=== PATIENT | female | born 2000 | race Caucasian/White ===

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

== ENCOUNTER → 2022-03-24 | Outpatient (CLI) | payer OTHER, SELFPAY ==
--- NOTE | 2022-03-24 16:45 | MRI_ITS ---
EXAM: MR RIGHT UPPER EXTREMITY WITHOUT INTRAVENOUS CONTRAST, WRIST CLINICAL INDICATION: assess soft tissue mass ? ganglion cyst TECHNIQUE: Multiplanar and multisequence MR images of the right wrist without intravenous contrast. This report was created using [employer] report [employer] technology. COMPARISON: None. FINDINGS: LIGAMENTS: SCAPHOLUNATE: Unremarkable. Intact. LUNOTRIQUETRAL: Unremarkable. Intact. TENDONS: FLEXOR COMPARTMENTS: Unremarkable. Intact. No tenosynovitis. EXTENSOR COMPARTMENTS: Peripheral/ulnar dislocation of the extensor carpi ulnaris (ECU) tendon indicating ECU subsheath rupture. NERVES: MEDIAN: Unremarkable. Median nerve is normal in size and signal intensity. ULNAR: Unremarkable. Ulnar nerve is normal in size and signal intensity. MUSCLES: Unremarkable. FLUID: Unremarkable. No joint effusion. CARTILAGE: Unremarkable. The articular cartilage is preserved. TRIANGULAR FIBROCARTILAGE COMPLEX: Unremarkable. Intact without communicating defect. BONES/JOINTS: Ulnar minus deformity without complication. Small amount of fluid at the articulation between the triquetrum and pisiform. No fracture. No abnormal bone marrow signal. No other joint effusion or synovitis. OTHER SOFT TISSUES: Septated ganglion cyst measuring 1.7 x 1.0 cm located between second and fourth extensor compartments of the dorsal wrist. MRI/Upper Ext Joint Only(Routine) IMPRESSION: 1. Septated ganglion cyst measuring 1.7 x 1.0 cm located between second and fourth extensor compartments of the dorsal wrist. 2. Peripheral/ulnar dislocation of the extensor carpi ulnaris (ECU) tendon indicating ECU subsheath rupture. Electronically Signed: Clemente James MD at 22:55 EST ,
== END | disposition home or self-care (01) ==
PROVIDERS: PCP Family Medicine; Visit Provider Orthopaedic Surgery Sports Medicine
DX: M67.431 Ganglion, right wrist (principal); S63.004A Unspecified dislocation of right wrist and hand, initial encounter
CPT/HCPCS: 73221

== ENCOUNTER 2022-05-26 12:36 | Day surgery (SDC) | payer OTHER, SELFPAY ==
[2022-05-26] VITALS (7 sets, daily range): BP systolic 113–144; BP diastolic 60–89; PULSE 68–90; RESP 16–18; TEMP 36.6–37.1; O2SAT 98–100; BMI 23.4
[2022-05-26 13:09] LABS: Internal QC Validated? YES +Cl - CLEAR BKGD; Pregnancy, Urine Negative Negative
[2022-05-26] MEDS: Lactated Ringers 1,000 ML 15 ML IV (13:13)
--- NOTE | 2022-05-26 13:32 | HP.PCM_ITS ---
HPI - General HPI Narrative CHUYITA ARNOLD, is a 21 F who presents for right dorsal wrist ganglion cyst excision. No changes to h and p. Post op normal ROM, no heavy lifting or gripping. Tylenol and NSAIDs for pain control. Right wrist marked. No further questions, ok to proceed. MR#: [id number] Acct: [id number] Name:CHUYITA ANDRADE Rep #: [id number] : 2000 ? ? Provider: Dr. Niels Chavez MD Age/Sex:? 21/F ? ? Location: [facility] Status: Signed Intake Intake Visit Reasons:?RIGHT WRIST Chief Complaint: right wrist pain Is patient in pain?: Yes Pain scale (1-10): 9 Allergies No Known Allergies Allergy (Verified 04/15/22 14:52) Medications cholecalciferol (vitamin D3) 125 mcg (5,000 unit) capsule 125 mcg PO DAILY 02/18/22 [History Confirmed 04/15/22] sertraline 50 mg tablet 50 mg PO DAILY 02/18/22 [History Confirmed 04/15/22] PFSH Medical History? Ganglion cyst of dorsum of right wrist Social History? Smoking Status:? Never smoker alcohol intake:? never substance use type:? does not use HPI RIGHT WRIST Details: Parts of this documentation were recorded by a scribe, this documentation accurately reflects the service provided and the decisions made by me, Dr. Niels Chavez MD 04/15/22 [id number]. CHUYITA ARNOLD is a 21 year old F here today for follow up MRI for ganglion cyst assessment right upper extremity at the dorsal wrist. The cyst is still present despite repeated attempts at aspiration.? The patient desires this removed. Ortho Exam General General: Yes no acute distress Neurologic: Yes alert and Yes oriented x3 Psychologic: Yes reasonable and appropriate Right Wrist/Hand Skin/Wound: Yes CDI, No Swelling, No Ecchymosis and Yes nail intact Contralateral Normal: Yes A1 keegan trigger: No Right Wrist: Yes ROM-Extension 0-60, ROM-Flexion 0-80, ROM-Pronation 0-80, ROM- Supination 0-90 and Palpable Nodule; No Snuffbox tenderness, Riky's Test, Tender to palpate triangular fibrocartilage complex or Distal radioulnar joint Motor: EPL: 5, FDP-2: 5, 1st Dorsal Interosseous: 5 and APB: 5 Sensation: Radial: I, Ulnar: I and Median: I WRIST: Midline dorsum of the wrist there is a 3 cm circular mass mobile minimally tender soft it transilluminates. Left Wrist/Hand Skin/Wound: No Swelling and No Ecchymosis Supplemental Info MR#:? [id number] Acct: [id number] Name:? CHUYITA ARNOLD Rep #: [id number] :?? 2000 F 21 ? From:? ? Clemente James MD PCP: Dr. Nilesh López MD ? Status: REG CLI Study: Upper Ext? Joint Only(Routine) ? Date of Exam: 03/24/22 Exam# [id number] ? Ordering Dr:? Niels Chavez MD EXAM:? MR RIGHT UPPER EXTREMITY WITHOUT INTRAVENOUS CONTRAST, WRIST CLINICAL INDICATION:? assess soft tissue mass ? ganglion cyst TECHNIQUE:? Multiplanar and multisequence MR images of the right wrist without intravenous contrast.? This report was created using [employer] report generation technology. COMPARISON:? None. FINDINGS: LIGAMENTS: SCAPHOLUNATE:? Unremarkable.? Intact. LUNOTRIQUETRAL:? Unremarkable.? Intact. TENDONS: FLEXOR COMPARTMENTS:? Unremarkable.? Intact.? No tenosynovitis. EXTENSOR COMPARTMENTS:? Peripheral/ulnar dislocation of the extensor carpi ulnaris (ECU) tendon indicating ECU subsheath rupture. NERVES: MEDIAN:? Unremarkable.? Median nerve is normal in size and signal intensity. ULNAR:? Unremarkable.? Ulnar nerve is normal in size and signal intensity. MUSCLES:? Unremarkable. FLUID:? Unremarkable.? No joint effusion. CARTILAGE:? Unremarkable.? The articular cartilage is preserved. TRIANGULAR FIBROCARTILAGE COMPLEX:? Unremarkable.? Intact without communicating defect. BONES/JOINTS:? Ulnar minus deformity without complication.? Small amount of fluid at the articulation between the triquetrum and pisiform.? No fracture.? No abnormal bone marrow signal.? No other joint effusion or synovitis. OTHER SOFT TISSUES:? Septated ganglion cyst measuring 1.7 x 1.0 cm located between second and fourth extensor compartments of the dorsal wrist. MRI/Upper Ext? Joint Only(Routine) IMPRESSION: ? 1.? Septated ganglion cyst measuring 1.7 x 1.0 cm located between second and fourth extensor compartments of the dorsal wrist. ? 2.? Peripheral/ulnar dislocation of the extensor carpi ulnaris (ECU) tendon indicating ECU subsheath rupture. ? Electronically Signed: Clemente James MD at 22:55 EST , ? Coding Level of Care Code Off vis,est,level 3 Diagnoses Ganglion cyst of dorsum of right wrist? M67.431 Assessment and Plan Assessment and Plan (1) Ganglion cyst of dorsum of right wrist: ?Status:?Acute ?Plan: 21-year-old female with a dorsal wrist what appears to be a ganglion cyst both clinically as well as on MRI.? Patient wishes to have this removed.? We discussed the pros cons risks and benefits of continued nonoperative management versus repeat aspiration versus surgical excision.? Specific risks of surgery include but not limited to stiffness wrist instability and recurrence up to 10%.? Pros and cons risks and benefits were discussed with the patient including but not limited to infection, pain, stiffness, bleeding, damage to surrounding structures, neurovascular injury, recurrence or retear, failure or wear of hardware or fixation, instability, fracture, deep vein thrombosis and pulmonary embolism, anesthetic risks, patient dissatisfaction, need for further surgery and other risks.? Patient understood and wished to proceed with surgery, and signed the informed consent documentation. [facility] Medical History Anxiety Depression Ganglion cyst of dorsum of right wrist Non-smoker Wears contact lenses Home Medications cholecalciferol (vitamin D3) 125 mcg (5,000 unit) capsule 125 mcg PO DAILY 02/18/22 [History Last Taken Unknown] sertraline 50 mg tablet 100 mg PO DAILY 02/18/22 [History Last Taken 05/26/22] magnesium 100 mg tablet 100 mg PO DAILY 05/19/22 [History Last Taken Unknown] Allergy/AdvReac Type Severity Reaction Status Date / Time No Known Allergies Allergy Verified 05/26/22 13:06 Surgical History No history of previous surgery Social History Smoking Status: Never smoker alcohol intake: never substance use type: does not use Vital Signs Vital Signs Vital Signs: 05/26/22 13:06 Temperature 98.3 F Temperature Source Temporal Pulse Rate 68 Respiratory Rate 16 Blood Pressure 126/76 H Blood Pressure Mean 92 Blood Pressure Source Monitor Blood Pressure Position Semi-Fowlers Blood Pressure Location Left Arm Pulse Ox 100 Oxygen Delivery Method Room Air Weight Weight: 158 lb 11.725 oz Body Mass Index (BMI) 23.4 Results Lab / Micro Data Labs: Laboratory Results - last 24 hr 05/26/22 13:00: Urine Test Negative
--- NOTE | 2022-05-26 14:15 | GANG_PTH ---
PATIENT: CHUYITA ARNOLD LOC: [facility] [place] U#:[id number] AGE/SX: 21/F ROOM: RE05/26/[address]: Dr. Niels Chavez MD : 2000 BED: DIS: 05/26/2022 SPEC #: [id number] RECD: 05/26/22 16:49 STATUS: MARY KATE REQ #: [id number] LUCIA: 05/26/22 14:[address]: Niels Chavez DEPT: SURGICAL PATHOLOGY RECD BY: Diandra Mayberry ENTERED: 05/27/22 09:55 SP TYPE: GANGLION OTHR DR: Dr. Rafael López MD Tissues: GANGLION CYST Procedures: Surgery Specimen Level III HEADER OPERATION: [place] wrist ganglion cyst excision PRE-OP DIAGNOSIS: Right dorsal wrist ganglion cyst TISSUE SUBMITTED: Right dorsal wrist ganglion MICROSCOPIC DIAGNOSIS Right dorsal cyst ganglion, excision: Consistent with ganglion cyst. SJ:pham 05/28/2022 MICROSCOPIC DESCRIPTION Slides are reviewed. GROSS DESCRIPTION Received in fixative is one container labeled with the patient's name and designated right dorsal wrist ganglion. The specimen consists of a piece of gomez soft tissue measuring 2.0 x 1.2 x 0.5 cm. The specimen is bisected and submitted entirely in one cassette. / SJ:rg 05/27/2022 TC:5 CPT: 68556
[2022-05-26] MEDS: Cefazolin 2 GM in 0.9% Normal Saline 100 ML IV (15:24)
[2022-05-26] MEDS: Bupivacaine 0.25% 30 ML Vial (16:15)
--- NOTE | 2022-05-26 16:24 | PCM.OPRPT ---
Problems Associated Problem List Diagnoses (1) Ganglion cyst of dorsum of right wrist: Report of Operation Date of Procedure: 05/26/22 Pre-Operative Diagnosis: Right dorsal wrist ganglion cyst Post-Operative Diagnosis: Same Surgery/Procedure Performed:: Right dorsal wrist ganglion cyst excision Surgeon: Niels Chavez Type of Anesthesia: General and Local Anesthesiologist: Rohan Herron Estimated Blood Loss (mL): 10 Description of Procedure: Patient brought to the operating room theater. Placed supine on the operating room table. General anesthesia induced. All bony prominences padded. SCDs on legs. Hand table used the patient's right side 18 inch tourniquet applied to the right upper extremity appropriately padded. Upper extremity prepped and draped in usual sterile fashion with chlorhexidine-based prep solution drying over 3 minutes drying time prior to draping. Preoperative timeout performed to confirm the site patient and the surgery. Began by elevating the limb inflating the tourniquet to 250 mmHg. Used a standard dorsal midline longitudinal incision over top of the dorsal ganglion cyst. Carried dissection down through skin and subcutaneous tissue. Protected the extensor tendons including the extensor pollicis longus tendon. This was just distal to the extensor retinaculum. I excised the dorsal ganglion cyst in 1 piece and sent it for specimen. This had an obvious stalk. I removed it with a stalk. Protected the joint capsule. The cyst Was filled with gelatinous clear material. Tourniquet let down meticulous hemostasis achieved wound thoroughly irrigated with normal saline followed by closure of the subcutaneous tissue with 2-0 Vicryl and skin with 3-0 Monocryl. Skin thoroughly cleaned and dried 5 cc quarter percent bupivacaine instilled in and around the incision site. Used Dermabond per inventory coordinator directions. This was followed once it was dry by Adaptic gauze and loosely wrapped Javier bandage. Patient woken up from the general anesthetic transferred off the operating room table and taken to postanesthetic care unit in stable condition. All sponge needle instrument counts were correct. Plan for the patient is range of motion of the hand and fingers no heavy lifting and follow-up in the office in 2 days time. Complications none Admit VTE Documentation VTE Present on Admission: No VTE Mechan Device Prophylaxis: SCD's VTE Pharm Prophylaxis ordered?: No Reason prophylaxis not ordered:: Treatment Not Indicated Procedures Musculoskeletal 20xxx-29xxx: Other Procedure See Report
--- NOTE | 2022-05-26 16:30 | DCINST_ITS ---
Discharge Instructions Diet Discharge Diet: No restrictions Activity Ice area for (Minutes): 10 Lifting Restrictions: hand,fingers ROM as tolerated, no heavy lifting or gripping Dressing / Incision Call your doctor if your incision/area has: Continuous Slow Oozing, Sudden Increased Bleeding, Increased Pain/ Swelling, Increased Redness, Foul Smelling Discharge and Swelling at the incision site Remove Dressing in: leave in place till F/U Follow Up Care Please Follow Up With: Niels Chavez MD When: 2 days Test Results: Test results from this visit will be discussed in further detail at your follow- up appointment, if applicable. Discharge Plan Admission Attending Provider: Niels Chavez Primary Care Provider: Nilesh López Instructions Patient Instructions: Ganglion Cyst: Hand Discharge Orders/Prescriptions Prescriptions: New acetaminophen-codeine 300-30 mg tablet 1 tab PO Q8H PRN (Reason: pain) 2 Days Qty: 7 0RF No Action sertraline 50 mg tablet 100 mg PO DAILY cholecalciferol (vitamin D3) 125 mcg (5,000 unit) capsule 125 mcg PO DAILY magnesium 100 mg Tablet 100 mg PO DAILY Referrals / Follow Up: Nilesh López MD [Primary Care Provider] - Niels Chavez MD [Med Staff - Active Staff] - Disposition Disposition (needs filled in before D/C Order can be placed): Home, Self Care
[2022-05-26] MEDS: HYDROcodone Bitartrate/Apap 5/325 Tablet PO (17:50)
== END 2022-05-26 18:18 | disposition home or self-care (01) ==
LOC: SDC 12:38 → AC 12:42
PROVIDERS: Anesthesiology; PCP Family Medicine; Referring Provider Orthopaedic Surgery Sports Medicine; Visit Provider Orthopaedic Surgery Sports Medicine
PROC: (CPT 25111; principal; 2022-05-26 14:00)
DX: M67.431 Ganglion, right wrist (principal); F41.9 Anxiety disorder, unspecified; F32.A Depression, unspecified
CPT/HCPCS: 25111; 01810; 81025; 88304; J7120; J2405

== ENCOUNTER 2022-07-05 08:30 | Outpatient (RCR) | payer OTHER, SELFPAY ==
--- NOTE | 2022-06-16 08:39 | HP.OTEVAL ---
Patient's Visit Information CHUYITA ARNOLD is a 21 year old F, referred to Occupational Therapy by Dr. Niels Chavez MD, with a diagnosis of right ganglion cyst. Date of Evaluation: 06/16/22 Occupational Therapist: Radha Johnson, OTR/L, CHT - Subjective This 21 year old female was seen for OT eval with dx of right gaglion cyst. Pt states for three years she had issues and last year it was limiting her in her ADLs and IADLs. Pt works as a cook and with the cyst it was increasing difficulty to perform her required tasks. pt has sx on May 26 2022 and pt states she is struggling with limited ROM. 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 Pt would like to know what she can do to return to her PLOF. - Pain right 0 Pain Intensity Range: 6, 8 - ROM Wrist: right 50/30 left 75/75 ROM Comments: right RD 20 left 20. right UD 30 left 30 - Strength Fire Management Officer: right 75 left 80 Lateral Pinch: right 10# left 18# Tripod Pinch: right 14# left 18# - Sensation Sensation Comments: pt reports sensory disturbance as burning/ting sensation from time to time - Quick DASH-Disab of Arm,Shoulder& Hand Quick DASH Score: 30.0000 - Goals Goal:Daily scar massage when approriate: Yes Goal:ROM equal to unaffected hand: Yes Goal:No pain with affected hand use: Yes Goal:Full use of affected hand in daily activities including: Yes Goal:Decrease scar hypersensitivity: Yes - Rehabilitation General Assessment: pt s/p 3 weeks following ganglion excision of right dorsum of wrist. Pt demo with a decrease in ROM and slight hyper trophic scaring. Due to this limitation of ROM pt is having increase difficulty with ADLs. Pt would benefit from skilled OT services 1x week for 3-4 weeks. Today therapist ed. pt on PROM of wrist flex/ext and scar mtg. Pt demo understanding and at end of session gained 15* of flexion. pt was given HEP and ed. on POC pt demo understanding and agrees to POC. Rehabilitation Potential: Excellent - Anticipated Interventions A/AAROM/PROM, Scar Care, Triggerpoint Release, Desensitization - Visit Plan Frequency: 1-2x /Week Duration: 4 Weeks General Plan: focus will be on ROM. may use modalities (paraffin) to increase soft tissue mobility TEXT: Thank you for the opportunity to evaluate your patient. For Medicare and Medicare HMO plans, please review the plan of care and approve it. It will need to be FAXED BACK to us at [phone] for Medicare purposes. Please let me know if there are questions or concerns regarding this plan of care. Physician Signature: Date:
--- NOTE | 2022-07-05 08:48 | HP.OTDCSUM ---
It has been my pleasure to treat CHUYITA ARNOLD under orders from Dr. Niels Chavez MD, for the diagnosis of right ganglion cyst for a total of 4 visit(s). Please see the following information for a summary of their discharge status. % Improvement: 80 Objective/Function: pt arrives with right wrist ROM at 70/75* this was increase from 50/30. pt demo understanding of her HEP and will continue with scar mtg and PROM AROM. Patient Goals: Regain Mobility, Decrease Tingling/Numbness Goal:Daily scar massage when approriate: Yes Goal:ROM equal to unaffected hand: Yes Goal:No pain with affected hand use: Yes Goal:Full use of affected hand in daily activities including: Yes Goal:Decrease scar hypersensitivity: Yes Plan: D/C with HEP Discharge Comments: pt was seen for 4 OT sessions to ensure gains in pts right wrist ROM following a ganglion cyst excision. pt made great gains and at this time has met goals of her functional ROM. pt was instructed to continue with a HEP. pt agrees with HEP and POC of D/c. If there are questions or concerns regarding this patient's occupational therapy, please fell free to call me at [phone]. Thank you for the referral of this patient. Sincerely, Radha Johnson, OTR/L, CHT
== END 2022-07-05 09:57 | disposition home or self-care (01) ==
LOC: OT 08:30
PROVIDERS: PCP Family Medicine; Referring Provider Orthopaedic Surgery Sports Medicine; Visit Provider Orthopaedic Surgery Sports Medicine
DX: M67.431 Ganglion, right wrist (principal)
CPT/HCPCS: 97110; 97140; 97166; 97530

== ENCOUNTER → 2023-04-14 | Outpatient (CLI) | payer OTHER, SELFPAY ==
--- NOTE | 2023-04-14 10:56 | RAD_ITS ---
STUDY: X-RAY - PARANASAL SINUSES REASON FOR EXAM: Female, 22 years old. Chronic sinusitis TECHNIQUE: 3 view(s) of the paranasal sinuses were obtained. COMPARISON: None. FINDINGS: Normal visualized frontal, maxillary, ethmoidal and sphenoid sinuses. Normal visualized facial bones. The soft tissue structures are unremarkable. RAD/Sinuses min 3 Views IMPRESSION: Normal x-rays of the paranasal sinuses. Electronically Signed: Alcides John MD at 15:32 EST ,
--- NOTE | 2023-04-14 11:00 | RAD_ITS ---
INDICATION: upper resp infection EXAMINATION/TECHNIQUE: X-RAY - XR Chest 2 Views COMPARISON: FINDINGS: LINES/DEVICES: None. LUNGS: No consolidation, edema or effusion. No pneumothorax. MEDIASTINUM AND CARDIOVASCULAR STRUCTURES: Cardiac silhouette not enlarged. Central airways and mediastinal contour are unremarkable. BONES AND SOFT TISSUES: Unremarkable. RAD/Chest PA and Lateral IMPRESSION: No radiographic evidence of acute cardiopulmonary disease. Electronically Signed: Héctor Lund DO at 17:24 EST Reading Location ID and State: [facility] / [place] Tel [phone], Service support ,
== END | disposition home or self-care (01) ==
LOC: MTRAD 10:56
PROVIDERS: PCP Family Medicine; Referring Provider Family Medicine; Visit Provider Family Medicine
DX: J32.9 Chronic sinusitis, unspecified (principal); J06.9 Acute upper respiratory infection, unspecified
CPT/HCPCS: 70220; 71046